=== PATIENT | female | born 1990 | race Two or more races ===

== ENCOUNTER 2022-11-04 20:35 | Emergency (ER) | payer SELFPAY ==
[~2022-11-04] VITALS: Ht 160 cm; Wt 77.1 kg
[2022-11-04 21:45] LABS: BASOPHILS % (AUTO) 0.3 % (0.0-2.0); EOSINOPHILS % (AUTO) 0.1 % (0.0-6.0); HEMATOCRIT 41 % (33-45); HEMOGLOBIN 13.4 g/dL (11.5-14.8); LYMPHOCYTES # (AUTO) 2.1 K/uL (0.8-4.8); LYMPHOCYTES % (AUTO) 25.1 % (20.0-44.0); MEAN CORPUSCULAR HEMOGLOBIN 25 PG (26.0-33.0); MEAN CORPUSCULAR HGB CONC 33 g/dl (31.0-36.0); MEAN CORPUSCULAR VOLUME 76 fL (82-100); MONOCYTES # (AUTO) 0.5 K/uL (0.1-1.30); MONOCYTES % (AUTO) 5.8 % (2.0-12.0); NEUTROPHILS # (AUTO) 5.7 K/uL (1.8-8.9); NEUTROPHILS % (AUTO) 68.7 % (43.0-81.0); PLATELET COUNT (AUTO) 322 K/uL (150-450); RED BLOOD CELL COUNT(AUTO) 5.47 MIL/uL (4.0-5.2); RED CELL DISTRIBUTION WIDTH 14.6 % (11.5-15.0); WHITE BLOOD COUNT (AUTO) 8.3 K/uL (4.3-11.0)
[2022-11-04 22:00] LABS: ALBUMIN 4.1 g/dL (3.4-5.0); CALCIUM, SERUM 9.6 mg/dL (8.5-10.1)
[2022-11-04] MEDS ORDERED: KETO10TA2 PO (22:25)
[2022-11-04 23:35] VITALS: BP 126/73; TEMP 98; O2SAT 97
== END 2022-11-04 23:36 | disposition home or self-care (01) ==
LOC: ER 20:47
DX: M79.18 Myalgia, other site (principal); R51.9 Headache, unspecified; Y04.8XXA Assault by other bodily force, initial encounter; Y93.89 Activity, other specified; Y92.89 Other specified places as the place of occurrence of the external cause; Y99.8 Other external cause status
CPT/HCPCS: 36415; 70450-TC; 70486-TC; 80048-TC; 82040-TC; 85025-TC